=== PATIENT | female | born 1980 | race Caucasian/White ===

== ENCOUNTER 2020-02-16 19:04 | Emergency (ER) | payer BC ==
--- NOTE | 2020-02-16 20:22 | ER Document Report ---
ED Medical Screen (RME) - General Chief Complaint: Vaginal Bleeding Stated Complaint: VAGINAL BLEEDING Time Seen by Provider: 02/16/20 20:09 Notes: 39-year-old female who is 13 1/2 weeks with twins presenting with 1 hour of vaginal bleeding. Reports she has passed a few large clots and continues to notice spotting at this time. Is having mild abdominal cramping. She has a history of hypothyroidism. Is taking progesteron and levothyroxine. - Related Data Allergies/Adverse Reactions: No Known Allergies Allergy (Unverified 02/16/20 19:58) Home Medications: LEVOTHYRO. PROGESTERONE Past Medical History - Social History Frequency of alcohol use: None Drug Abuse: None Physical Exam - Vital signs Vitals: Temp Pulse Resp BP Pulse Ox 99.4 F 81 20 125/93 H 99 02/16/20 19:12 02/16/20 19:12 02/16/20 19:12 02/16/20 19:12 02/16/20 19:12 - Respiratory Respiratory status: No respiratory distress Breath sounds: Normal - Cardiovascular Rhythm: Regular Heart sounds: Normal auscultation Course - Re-evaluation Re-evalutation: 02/16/20 20:27 You have not completed your medical work up. We are uncertain as to the cause of your symptoms and additional work up is recommended. Please follow up with your primary care as soon as possible. If your symptoms worsen or you develop new symptoms please return to the emergency department. - Vital Signs Vital signs: Temp Pulse Resp BP Pulse Ox 99.4 F 81 20 125/93 H 99 02/16/20 19:59 02/16/20 19:12 02/16/20 19:12 02/16/20 19:12 02/16/20 19:12
[2020-02-16 20:40] LABS: ABSOLUTE EOSINOPHILS # (AUTO) 0.1 10^3/uL (0.0-0.6); ABSOLUTE LYMPHOCYTES (AUTO) 2.1 10^3/uL (0.5-4.7); ABSOLUTE MONOCYTES (AUTO) 0.5 10^3/uL (0.1-1.4); ABSOLUTE NEUT (AUTO) 8.8 10^3/uL (1.7-8.2); BASOPHILS % (AUTO) 0.2 % (0-2); EOSINOPHILS % (AUTO) 0.7 % (0-6); HEMATOCRIT 36.5 % (36.0-47.0); HEMOGLOBIN 12.7 g/dL (12.0-15.5); LYMPHOCYTES % (AUTO) 18.2 % (13-45); MEAN CORPUSCULAR HEMOGLOBIN 30.3 pg (27.0-33.4); MEAN CORPUSCULAR HGB CONC 34.8 g/dL (32.0-36.0); MEAN CORPUSCULAR VOLUME 87 fl (80-97); PLATELET COUNT 162 10^3/uL (150-450); RED BLOOD COUNT 4.19 10^6/uL (3.72-5.28); RED CELL DISTRIBUTION WIDTH 13.7 % (11.5-14.0); SEGMENTED NEUTROPHILS % (AUTO) 76.9 % (42-78); TOTAL CELLS COUNTED % (AUTO) 100 %; WHITE BLOOD COUNT 11.4 10^3/uL (4.0-10.5)
[2020-02-16 20:53] LABS: ALBUMIN 4.3 g/dL (3.5-5.0); ALKALINE PHOSPHATASE 60 U/L (38-126); ANION GAP 8 (5-19); ASPARTATE AMINO TRANSFERASE 37 U/L (14-36); BILIRUBIN,TOTAL 0.5 mg/dL (0.2-1.3); BLOOD UREA NITROGEN 9 mg/dL (7-20); CALCIUM 9.8 mg/dL (8.4-10.2); CARBON DIOXIDE 23 mmol/L (22-30); CHLORIDE 102 mmol/L (98-107); GLUCOSE 86 mg/dL (75-110); POTASSIUM 3.5 mmol/L (3.6-5.0); TOTAL PROTEIN 7.1 g/dL (6.3-8.2)
[2020-02-16 21:01] LABS: APPEARANCE,URINE CLEAR; BILIRUBIN,URINE NEGATIVE (NEGATIVE); COLOR,URINE YELLOW; GLUCOSE, URINE NEGATIVE (NEGATIVE); KETONES,URINE 20 mg/dL (NEGATIVE); LEUKOCYTE ESTERASE,URINE NEGATIVE (NEGATIVE); NITRITE,URINE NEGATIVE (NEGATIVE); PROTEIN,URINE NEGATIVE (NEGATIVE); URINE SPECIFIC GRAVITY 1.009; UROBILINOGEN,URINE NEGATIVE mg/dL (<2.0)
--- NOTE | 2020-02-16 21:42 | RADIOLOGY REPORT (SQ) ---
EXAM: First trimester OB ultrasound CLINICAL INDICATION: Vaginal bleeding. 20 . COMPARISON: None. TECHNIQUE: First trimester OB ultrasound was performed. FINDINGS: Uterus: The uterus measures 15.2 x 13.6 x 8.9 cm. Two separate gestational sacs are identified with a membrane seen the two sacs. The cervix is closed and measures 3.6 cm. TWIN A: Has a crown-rump length of 7.42 cm with a gestational age of 13 weeks four days. Heart rate is 165 bpm. Twin B: Has a crown-rump length of 7.59 cm and a gestational age of 13 weeks five days. Heart rate is 162 bpm. Ovaries and adnexa: Right ovary measures 3.2 x 2.7 x 1.9 cm and is morphologically normal with normal color and spectral waveforms. The left ovary is also normal measuring 3.5 x 2.2 x 2.2 cm. Normal color and spectral waveforms. IMPRESSION: Diamniotic dichorionic twin . Gestational age is approximately 13 weeks four days. This correlates with the clinical age.
[2020-02-16 22:23] VITALS: BP 119/67
--- NOTE | 2020-02-16 22:26 | ER Document Report ---
ED General - General Chief Complaint: Vaginal Bleeding Stated Complaint: VAGINAL BLEEDING Time Seen by Provider: 02/16/20 20:09 Notes: 39-year-old female with history of hypothyroidism who is 13 weeks presenting with vaginal bleeding starting this evening. States she passed a few large clots. Reports mild lower abdominal cramping. She takes Synthroid, progesterone and a supplement. She has had a history of spontaneous . Her [employer] is in Dr. Mina Ricci. She denies any fevers, chills, shortness of breath, chest pain, dizziness or lightheadedness or additional symptoms. - Related Data Allergies/Adverse Reactions: No Known Allergies Allergy (Unverified 02/16/20 19:58) Home Medications: LEVOTHYRO. PROGESTERONE Past Medical History - Social History Smoking Status: Former Smoker Frequency of alcohol use: None Drug Abuse: None Family History: Reviewed & Not Pertinent Patient has homicidal ideation: No Endocrine Medical History: Reports: Hx Hypothyroidism Past Surgical History: Reports: Hx Abdominal Surgery - gastric bypass Review of Systems - Review of Systems Constitutional: No symptoms reported EENT: No symptoms reported Cardiovascular: No symptoms reported Respiratory: No symptoms reported Gastrointestinal: See HPI Genitourinary: No symptoms reported Female Genitourinary: See HPI Musculoskeletal: No symptoms reported Physical Exam - Vital signs Vitals: Temp Pulse Resp BP Pulse Ox 99.4 F 81 20 125/93 H 99 02/16/20 19:12 02/16/20 19:12 02/16/20 19:12 02/16/20 19:12 02/16/20 19:12 - Notes Notes: Adult General: GENERAL: Alert, interacts well. No acute distress HEAD: Normocephalic, atraumatic EYES: Extraocular movements intact. ENT: Airway patent. Nares patent. NECK: Full range of motion. Supple. Trachea midline. LUNGS: Clear to auscultation bilaterally, no wheezes, rales, or rhonchi. No respiratory distress. Nontender chest wall. HEART: Regular rate and rhythm. No murmurs, rubs or gallops. ABDOMEN: Tender left lower quadrant GENITOURINARY: Deferred EXTREMITIES: Moves all 4 extremities spontaneously. BACK: Moves all extremities with full range of motion. NEUROLOGICAL: Alert and oriented x3. Normal speech. PSYCH: Normal affect, normal mood. SKIN: Warm, dry, normal turgor. No rashes or lesions noted. Course - Re-evaluation Re-evalutation: 02/17/20 00:41 Patient's hemoglobin is 12.7, white count is slightly elevated at 11.4. Vitals are stable. Beta hCG is 48,132. Ultrasound shows diamnionic dichorionic twin . Gestational age approximately 13 weeks 4 days. Heart rate of baby A was 165 heart rate of baby B is 162. Discussed ultrasound results with patient. Patient reports that vaginal bleeding has decreased. Notes when she used the restroom there was a small clot and light spotting. Recommend patient follow-up with [employer] tomorrow. She states that her provider will be seeing her tomorrow. Also discussed pelvic rest with patient. Discussed return precautions to include worsening symptoms or develo pment of new symptoms. Patient is in agreement with plan and verbalizes understanding. - Vital Signs Vital signs: Temp Pulse Resp BP Pulse Ox 98.0 F 69 20 119/67 100 02/16/20 22:29 02/16/20 22:29 02/16/20 22:29 02/16/20 22:29 02/16/20 22:29 - Laboratory Result Diagrams: 02/16/20 18:28 02/16/20 18:28 Laboratory results interpreted by me: 02/16/20 02/16/20 02/16/20 18:28 18:28 18:28 WBC 11.4 H Absolute Neuts (auto) 8.8 H Sodium 133.1 L Potassium 3.5 L Creatinine 0.47 L AST 37 H Beta HCG, Quant 14695.00 H Urine Ketones 20 H Urine Blood MODERATE H Discharge - Discharge Clinical Impression: Vaginal bleeding before 22 weeks gestation Condition: Stable Disposition: HOME, SELF-CARE Instructions: Vaginal Bleeding ([facility]) Additional Instructions: Please follow-up with your [employer]IDENT PAYER, Dr. Enriquez, tomorrow. Return precautions to the emergency department include shortness of breath, chest pain, dizziness, worsening vaginal bleeding or additional symptoms. Recommend pelvic rest at this time. Please avoid physical activity and intercourse
== END 2020-02-16 22:29 | disposition home or self-care (01) ==
LOC: ER 19:04
DX: O20.9 Hemorrhage in early pregnancy, unspecified (principal); O30.041 Twin pregnancy, dichorionic/diamniotic, first trimester; O99.281 Endocrine, nutritional and metabolic diseases complicating pregnancy, first trimester; E03.9 Hypothyroidism, unspecified; O99.841 Bariatric surgery status complicating pregnancy, first trimester; O26.891 Other specified pregnancy related conditions, first trimester; R10.814 Left lower quadrant abdominal tenderness; O99.111 Other diseases of the blood and blood-forming organs and certain disorders involving the immune mechanism complicating pregnancy, first trimester; D72.829 Elevated white blood cell count, unspecified; Z79.899 Other long term (current) drug therapy; Z3A.13 13 weeks gestation of pregnancy; Z87.891 Personal history of nicotine dependence
CPT/HCPCS: 36415; 76801; 80053; 81001; 84702; 85025; 86900; 86901; 93976; 99284